=== PATIENT | male | born 1945 | race African-American/Black ===

== ENCOUNTER 2022-02-15 18:45 | Inpatient (IN) | payer MEDICARE, SELFPAY ==
[2022-02-15] MEDS: Prazosin HCL 1 MG CAPSULE 2 MG PO (21:11)
[2022-02-15] MEDS: modafiniL 100 MG TABLET 200 MG PO (21:12)
[2022-02-15] MEDS: Gabapentin 400 MG CAPSULE PO (21:13)
[2022-02-15] MEDS: QUEtiapine Fumarate 100 MG TABLET PO (21:13)
[2022-02-15] MEDS: Apixaban 5 MG TABLET PO (21:13)
[2022-02-15] MEDS: Atorvastatin Calcium 80 MG TABLET PO (21:13)
[2022-02-15] MEDS: Mirtazapine 15 MG TABLET PO (21:14)
[2022-02-15 21:41] LABS: Estimated Glomerular Filt Rate > 60
[2022-02-16 00:53] VITALS: BMI 25.4
--- NOTE | 2022-02-16 02:50 | PC.NURSE ---
Pt is a 76 yr old cisgender white male. Arrived to S1 at approximately 19:20 by stretcher via ambulance staff (EMT) from [place] ED. Admitted to S1 due to Suicidal attempt by MEENU Melo). Legal Status is CV. A&Ox 4, able to verbalize needs. NKA. Pt has a history of HTN, Pacemaker, Chronic Back Pain. Pt is covid negative. Toxicology Screen shows negative results. Pt reports that he recently used crystal meth and self reported using cocaine recently. States that he has used alcohol and is a former smoker. States that I'm really tired tonight, I just want to eat and sleep tonight and I will answer more questions tomorrow. Thank you for everything. Meds ordered and reviewed with Grace Rosenbaum NP. Pt human rights packet signed and given to patient. Breakfast Menu food options given and selected by patient. Pt compliant with HS scheduled meds. Pleasant and cooperative with care. Pt oriented to room, bathroom, milleu, and staff. Pt reports feeling safe on unit. Will continue to monitor.
[2022-02-16 06:00] VITALS: BP 145/76; PULSE 78; RESP 19; TEMP 36.6; O2SAT 96
[2022-02-16 08:16] LABS: Estimated Average Glucose 105 mg/dL; Hemoglobin A1c % 5.3 %
[2022-02-16 08:18] LABS: Alanine Aminotransferase 16 U/L (0-40); Albumin Level 3.4 g/dL (3.5-5.0); Alkaline Phosphatase 103 U/L (39-117); Anion Gap 14 (12-20); Aspartate Amino Transferase 18 U/L (5-37); Bilirubin Total 0.5 mg/dL (0.0-1.0); Blood Urea Nitrogen 16 mg/dL (9-16); Calcium 8.5 mg/dL (8.4-10.2); Carbon Dioxide 25 mmol/L (22-29); Chloride 108 mmol/L (96-108); Cholesterol 145 mg/dL; Creatinine Clr Calc Pharmacy 68.6; Estimated Glomerular Filt Rate > 60; Glucose Fasting 93 mg/dL (60-99); HDL Cholesterol 49 mg/dL; LDL Cholesterol Calculated 75 mg/dl; Magnesium 1.9 mg/dL (1.6-2.6); Potassium 4.2 mmol/L (3.3-5.1); Sodium 143 mmol/L (135-145); Total Protein 5.9 g/dL (6.5-8.0); Triglycerides 106 mg/dL
[2022-02-16] MEDS: amLODIPine Besylate 10 MG TABLET PO (08:19)
[2022-02-16] MEDS: Metoprolol Succinate ER 25 MG TAB.ER.24H PO (08:19)
[2022-02-16] MEDS: modafiniL 100 MG TABLET 200 MG PO ×2 (08:19→21:01)
[2022-02-16] MEDS: QUEtiapine Fumarate 25 MG TABLET PO (08:19)
[2022-02-16] MEDS: Naltrexone HCl 50 MG TABLET PO (08:19)
[2022-02-16] MEDS: Gabapentin 400 MG CAPSULE PO ×4 (08:19→21:03)
[2022-02-16] MEDS: Multivitamin TABLET 1 TAB PO (08:19)
[2022-02-16] MEDS: Sertraline HCL 100 MG TABLET PO (08:19)
[2022-02-16] MEDS: Thiamine HCL 100 MG TABLET PO (08:19)
[2022-02-16] MEDS: Apixaban 5 MG TABLET PO ×2 (08:20→21:02)
[2022-02-16] MEDS: Furosemide 40 MG TABLET PO (08:20)
[2022-02-16] MEDS: Folic Acid 1 MG TABLET PO (08:20)
[2022-02-16] MEDS: Lidocaine 4 % Patch ADH..PATCH 1 PATCH TRANSDERMA (08:20)
[2022-02-16 08:42] LABS: Thyroid Stimulating Hormone 0.92 uIU/mL (0.32-4.0)
[2022-02-16 09:04] LABS: Folate > 20.0 ng/mL (> or = 4.0); Vitamin B12 223 pg/mL (200-900)
--- NOTE | 2022-02-16 14:04 | HO.PM.IMCN ---
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 He was monitored in ED at [facility] prior to transfer to [facility]. EKG showed paced atrial fibrillation with new q waves. QTc normal. Utox at that time was negative. Pt reports hx crystal meth use, last use one month ago but denies any other drug use. States he is not supposed to be taking naltrexone. He also states that he had an acute episode of heart failure and was treated with furosemide but had a serious adverse reaction to the medication and was hospitalized for this at [facility]. Denies any chronic congestive heart failure. Review of Systems Review of Systems: General: No fevers, malaise, unintentional weight loss HEENT: No blurred vision, diplopia Cardiovascular: No chest pain, palpitations, or leg edema Respiratory: No shortness of breath, wheezing, cough GI: No abdominal pain, nausea, vomiting, diarrhea, constipation, melena, hematochezia : No dysuira,hematuria, increased urinary frequency Neuro: No headaches, weakness, paresthesias Skin: No rashes or lesions [facility] Medical History (Updated 02/16/22 @ 14:20 by CRISSY Bryant) Atrial fibrillation Cigarette smoker Congestive heart failure Hyperlipidemia Hypertension Intentional overdose Pacemaker Polysubstance abuse Post-COVID chronic dyspnea Family History (Updated 02/16/22 @ 14:20 by CRISSY Bryant) Other No pertinent family history Surgical History (Updated 02/16/22 @ 14:20 by CRISSY Bryant) S/P cardiac pacemaker procedure Social History Household Members: Family Household Members Other:: Twin brother, daughter Housing: Unknown / Unable to assess Do you presently have visiting nurse or other home services: No Unable to assess alcohol history related to: Refusing to respond Patient Tobacco Use Status: Former Tobacco user Tobacco use type: Cigarette Smoked in Last 30 Days: Yes e-Cigarette/Vaping Use: Never Used Frequency of e-Cigarette/Vaping Use: Pt refused to answer at this time, Im sorry I am tired and need rest Patient Interested in Nicotine Replacement: No Patient Given Instructions on How to Stop Smoking: No Second Hand Smoke Exposure: No Use of substances other than those prescribed or required for medical reasons: Yes Substance Use Type: Crack/Cocaine, Methamphetamine and Unknown Substance Use Frequency: Recent Binge Last Used Substance: Unknown Currently Displaying Signs/Symptoms of Drug Intoxication Withdrawal: No Advance Directives: No Advance Directives Information Provided: No Advance Directives on File: No Do you have thoughts of harming others: None Do you have a plan to hurt others: No Plan Recently lost weight without trying: Unsure How much weight loss: Unsure Meds Allergies Allergy/AdvReac Type Severity Reaction Status Date / Time No Known Allergies Allergy Verified 02/15/22 19:13 Active Medications: Current Medications Acetaminophen (Acetaminophen 325 Mg Tablet) 650 mg PO Q6H PRN PRN Reason: Headache/Pain Mild Scale (1-3) Al Hydroxide/Mg Hydroxide (Magnesium Hydrox/Alum Hydrox 30 Ml Oral.Susp) 30 ml PO Q6H PRN PRN Reason: Heartburn/Nausea Albuterol Sulfate (Albuterol Sulfate 90 Mcg 8 Gm Inhaler) 2 puff INHALE Q4H PRN PRN Reason: wheezing Amlodipine Besylate (Amlodipine Besylate 10 Mg Tablet) 10 mg PO DAILY [facility]; Protocol Last Admin: 02/16/22 08:19 Dose: 10 mg Apixaban (Apixaban 5 Mg Tablet) 5 mg PO BID [facility] Last Admin: 02/16/22 08:20 Dose: 5 mg Atorvastatin Calcium (Atorvastatin Calcium 80 Mg Tablet) 80 mg PO BEDTIME [facility] Last Admin: 02/15/22 21:13 Dose: 80 mg Carbamide Peroxide (Carbamide Peroxide 6.5% Otic 15 Ml Drpbtl) 5 drop EAR-BOTH DAILY [facility] Stop: 02/19/22 20:13 Last Admin: 02/16/22 11:49 Dose: Not Given Fluticasone Propionate (Fluticasone Propionate Nasal 16 Gm [place]) 2 spray NOSTRIL-B DAILY [facility] Last Admin: 02/16/22 11:48 Dose: Not Given Folic Acid (Folic Acid 1 Mg Tablet) 1 mg PO DAILY [facility] Last Admin: 02/16/22 08:20 Dose: 1 mg Furosemide (Furosemide 40 Mg Tablet) 40 mg PO DAILY [facility]; Protocol Last Admin: 02/16/22 08:20 Dose: 40 mg Gabapentin (Gabapentin 400 Mg Capsule) 400 mg PO QID [facility] Last Admin: 02/16/22 08:19 Dose: 400 mg Hydroxyzine HCl (Hydroxyzine Hcl 25 Mg Tablet) 25 mg PO Q6H PRN PRN Reason: Anxiety Influenza Virus Vaccine (Flu Vacc [id number](6mos Up)/Pf 0.5 Ml Syringe) 0.5 ml IM .ONCE ONE Stop: 02/16/22 14:03 Lidocaine (Lidocaine 4 % Patch Adh..Patch) 1 patch TRANSDERMA DAILY [facility] Last Admin: 02/16/22 08:20 Dose: 1 patch Magnesium Hydroxide (Milk Of Magnesia 30 Ml Oral.Susp) 30 ml PO DAILY PRN PRN Reason: Constipation Metoprolol Succinate (Metoprolol Succinate Er 25 Mg Tab.Er.24h) 25 mg PO DAILY [facility]; Protocol Last Admin: 02/16/22 08:19 Dose: 25 mg Mirtazapine (Mirtazapine 15 Mg Tablet) 15 mg PO BEDTIME [facility] Last Admin: 02/15/22 21:14 Dose: 15 mg Modafinil (Modafinil 100 Mg Tablet) 200 mg PO BID [facility] Last Admin: 02/16/22 08:19 Dose: 200 mg Multivitamins/Vitamin C (Multivitamin Tablet) 1 tab PO DAILY [facility] Last Admin: 02/16/22 08:19 Dose: 1 tab Naltrexone HCl (Naltrexone Hcl 50 Mg Tablet) 50 mg PO DAILY [facility] Last Admin: 02/16/22 08:19 Dose: 50 mg Nicotine Polacrilex (Nicotine Polacrilex 2 Mg Gum) 2 mg BUCCAL Q1H PRN PRN Reason: smoking cessation Prazosin HCl (Prazosin Hcl 1 Mg Capsule) 2 mg PO BEDTIME [facility]; Protocol Last Admin: 02/15/22 21:11 Dose: 2 mg Quetiapine Fumarate (Quetiapine Fumarate 100 Mg Tablet) 100 mg PO BEDTIME [facility] Last Admin: 02/15/22 21:13 Dose: 100 mg Quetiapine Fumarate (Quetiapine Fumarate 25 Mg Tablet) 25 mg PO DAILY [facility] Last Admin: 02/16/22 08:19 Dose: 25 mg Sertraline HCl (Sertraline Hcl 100 Mg Tablet) 100 mg PO DAILY [facility] Last Admin: 02/16/22 08:19 Dose: 100 mg Thiamine HCl (Thiamine Hcl 100 Mg Tablet) 100 mg PO DAILY [facility] Last Admin: 02/16/22 08:19 Dose: 100 mg Trazodone HCl (Trazodone Hcl 50 Mg Tablet) 50 mg PO BEDTIME PRN PRN Reason: Insomnia Physical Exam Vital Signs and Narrative: Vital Signs: Last Vital Signs Temp 98 F 02/16/22 06:00 Pulse 78 02/16/22 06:00 Resp 19 02/16/22 06:00 BP 145/76 H 02/16/22 06:00 Pulse Ox 96 02/16/22 06:00 O2 Del Method 02/16/22 06:00 BMI result Body Mass Index 25.4 Constitutional - Awake and Alert, No apparent distress Eyes - PERRLA, EOMI Cardiovascular - S1S2, RRR, No edema Respiratory - Normal lung expansion, Normal respiratory effort, No respiratory distress, CTA bilaterally Gastrointestinal - NT / ND; +BS; No rebound or guarding Extremities - no calf tenderness bilaterally, no swelling Musculoskeletal - Normal inspection, normal ROM Skin - Warm/Dry Neurological - Alert & oriented x3, CN II-XII in tact, 5/5 strength BUE and BLE Psychological - Appropriate affect Results Labs CBC and Chem 7: 02/16/22 07:54 Labs: Laboratory Results - last 24 hr 02/15/22 02/16/22 02/16/22 21:07 07:54 07:54 Anion Gap 14 Estim Creat Clear Calc TNP 68.6 Estimated GFR > 60 > 60 Fasting Glucose 93 Estimat Average Glucose 105 Hemoglobin A1c % 5.3 Calcium 8.5 Magnesium 1.9 Total Bilirubin 0.5 AST 18 ALT 16 Alkaline Phosphatase 103 Total Protein 5.9 L Albumin 3.4 L Triglycerides 106 Cholesterol 145 LDL Cholesterol, Calc 75 HDL Cholesterol 49 Vitamin B12 Folate TSH 0.92 Free T4 1.10 02/16/22 07:54 Anion Gap Estim Creat Clear Calc Estimated GFR Fasting Glucose Estimat Average Glucose Hemoglobin A1c % Calcium Magnesium Total Bilirubin AST ALT Alkaline Phosphatase Total Protein Albumin Triglycerides Cholesterol LDL Cholesterol, Calc HDL Cholesterol Vitamin B12 223 Folate > 20.0 TSH Free T4 Assessment and Plan (1) Intentional overdose: Status: Acute Plan 76 year old male with history of hypertension, hyperlipidemia, polysubstance abuse, 2 cigarette per day smoker, atrial fibrillation anticoagulated with eliquis, and 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 #intentional overdose -pt took OD of gabapentin and seroquel on 02/13. EKG showed paced atrial fibrillation with new q waves from LVH but normal QTc -Hem and chemistries normal -Per ED notes patient took 100 seroquel. He is hemodynamically stable at this time. Would repeat EKG -Plan per psychiatry #Atrial fibrillation- rate controlled -Continue eliquis for anticoagulation -Continue metoprolol for rate #History of CHF -unclear etiology and chronicity -He is euvolemic and asymtpomatic at this time -Pt states had adverse rxn to furosemide and was hospitalized at [facility] and med was dc[facility] -Follow up outpt with pcp #Polysubstance abuse -Pt endorses last crystal meth use was one month ago. Denies other narcotic use but ED notes report hx cocaine use. -Utox screen in ED negative -Plan per psychiatry #History alcohol abuse -Appears [facility]. DC naltrexone -Continue folic acid and thiamine -Denies recent use. #Post-covid dyspnea -Albuterol prn #HTN- bp somewhat soft -Continue metoprolol -No longer taking [facility]. Discontinued. If hypertensive, resume at 5mg #Nicotine depedence -Smoke 2 cigs daily -Nicorette gum ordered for NRT Pt states multiple times that he does not have to take medications if he does not feel they should have been ordered. Discussed with the patient that yes, he does have the right to refuse medications but reminded the patient that the medications are ordered for a purpose and he is encouraged tohave a discussion with his providers if he has concerns about specific medications before outrightly refusing.
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
[2022-02-16 18:00] VITALS: BP 158/85; PULSE 60; RESP 18; TEMP 37.1; O2SAT 97
[2022-02-16] MEDS: QUEtiapine Fumarate 100 MG TABLET PO (21:00)
[2022-02-16] MEDS: Mirtazapine 15 MG TABLET PO (21:01)
[2022-02-16] MEDS: Prazosin HCL 1 MG CAPSULE 2 MG PO (21:02)
[2022-02-16] MEDS: Atorvastatin Calcium 80 MG TABLET PO (21:02)
[2022-02-17] MEDS: Acetaminophen 325 MG TABLET 650 MG PO (00:21)
[2022-02-17] MEDS: hydrOXYzine HCL 25 MG TABLET PO (00:22)
[2022-02-17 06:00] VITALS: BP 174/88; PULSE 71; RESP 20; TEMP 36.6; O2SAT 96
[2022-02-17 07:00] VITALS: BMI 25.4
[2022-02-17] MEDS: Multivitamin TABLET 1 TAB PO (09:59)
[2022-02-17] MEDS: QUEtiapine Fumarate 25 MG TABLET PO (09:59)
[2022-02-17] MEDS: Folic Acid 1 MG TABLET PO (10:00)
[2022-02-17] MEDS: Sertraline HCL 100 MG TABLET PO (10:00)
[2022-02-17] MEDS: Thiamine HCL 100 MG TABLET PO (10:00)
[2022-02-17] MEDS: Apixaban 5 MG TABLET PO ×2 (10:00→21:37)
[2022-02-17] MEDS: Metoprolol Succinate ER 25 MG TAB.ER.24H PO (10:00)
[2022-02-17] MEDS: Gabapentin 400 MG CAPSULE PO ×4 (10:00→21:37)
[2022-02-17] MEDS: modafiniL 100 MG TABLET 200 MG PO ×2 (10:00→16:39)
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
[2022-02-17 20:00] VITALS: BP 175/87; PULSE 60; RESP 18; TEMP 37; O2SAT 96
[2022-02-17] MEDS: Mirtazapine 15 MG TABLET PO (21:37)
[2022-02-17] MEDS: Atorvastatin Calcium 80 MG TABLET PO (21:37)
[2022-02-17] MEDS: Prazosin HCL 1 MG CAPSULE 2 MG PO (21:37)
[2022-02-17] MEDS: QUEtiapine Fumarate 100 MG TABLET PO (21:37)
[2022-02-18 08:00] VITALS: BP 169/87; PULSE 60; RESP 16; TEMP 36.5; O2SAT 97
[2022-02-18] MEDS: Sertraline HCL 100 MG TABLET PO (08:23)
[2022-02-18] MEDS: Metoprolol Succinate ER 25 MG TAB.ER.24H PO (08:24)
[2022-02-18] MEDS: modafiniL 100 MG TABLET 200 MG PO ×2 (08:24→14:06)
[2022-02-18] MEDS: Thiamine HCL 100 MG TABLET PO (08:25)
[2022-02-18] MEDS: Multivitamin TABLET 1 TAB PO (08:25)
[2022-02-18] MEDS: Folic Acid 1 MG TABLET PO (08:25)
[2022-02-18] MEDS: Gabapentin 400 MG CAPSULE PO ×4 (08:26→23:24)
[2022-02-18] MEDS: Apixaban 5 MG TABLET PO ×2 (08:26→23:23)
[2022-02-18] MEDS: Acetaminophen 325 MG TABLET 650 MG PO (10:10)
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
[2022-02-18 18:00] VITALS: BP 151/72; PULSE 59; RESP 18; TEMP 36.7; O2SAT 96
[2022-02-18] MEDS: Prazosin HCL 1 MG CAPSULE 2 MG PO (23:24)
[2022-02-18] MEDS: Atorvastatin Calcium 80 MG TABLET PO (23:24)
[2022-02-18] MEDS: Mirtazapine 15 MG TABLET PO (23:24)
[2022-02-18] MEDS: QUEtiapine Fumarate 100 MG TABLET PO (23:25)
[2022-02-19 08:10] VITALS: BP 144/68; PULSE 60; RESP 18; TEMP 36.2; O2SAT 97
[2022-02-19] MEDS: Gabapentin 400 MG CAPSULE PO ×3 (08:35→21:01)
[2022-02-19] MEDS: Sertraline HCL 100 MG TABLET PO (08:35)
[2022-02-19] MEDS: Metoprolol Succinate ER 25 MG TAB.ER.24H PO (08:35)
[2022-02-19] MEDS: Thiamine HCL 100 MG TABLET PO (08:35)
[2022-02-19] MEDS: Folic Acid 1 MG TABLET PO (08:35)
[2022-02-19] MEDS: Multivitamin TABLET 1 TAB PO (08:35)
[2022-02-19] MEDS: modafiniL 100 MG TABLET 200 MG PO ×2 (08:35→14:56)
[2022-02-19] MEDS: Apixaban 5 MG TABLET PO ×2 (08:35→21:01)
[2022-02-19] MEDS: Acetaminophen 325 MG TABLET 650 MG PO ×2 (08:41→21:01)
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
[2022-02-19 18:00] VITALS: BP 133/63; PULSE 60; RESP 16; TEMP 37.4; O2SAT 96
[2022-02-19] MEDS: QUEtiapine Fumarate 100 MG TABLET PO (21:01)
[2022-02-19] MEDS: Atorvastatin Calcium 80 MG TABLET PO (21:01)
[2022-02-19] MEDS: Prazosin HCL 1 MG CAPSULE 2 MG PO (21:01)
[2022-02-19] MEDS: Mirtazapine 15 MG TABLET PO (21:01)
[2022-02-19] MEDS: LORazepam 0.5 MG TABLET PO (21:02)
[2022-02-20 06:00] VITALS: BP 141/73; PULSE 60; RESP 18; TEMP 36.1; O2SAT 98
[2022-02-20] MEDS: Thiamine HCL 100 MG TABLET PO (09:30)
[2022-02-20] MEDS: Gabapentin 400 MG CAPSULE PO ×4 (09:30→20:58)
[2022-02-20] MEDS: Multivitamin TABLET 1 TAB PO (09:30)
[2022-02-20] MEDS: Folic Acid 1 MG TABLET PO (09:30)
[2022-02-20] MEDS: Apixaban 5 MG TABLET PO ×2 (09:30→20:57)
[2022-02-20] MEDS: Sertraline HCL 100 MG TABLET PO (09:31)
[2022-02-20] MEDS: modafiniL 100 MG TABLET 200 MG PO ×2 (09:31→14:58)
[2022-02-20] MEDS: Metoprolol Succinate ER 25 MG TAB.ER.24H PO (09:31)
[2022-02-20] MEDS: Lidocaine 4 % Patch ADH..PATCH 1 PATCH TRANSDERMA (09:34)
[2022-02-20] MEDS: Acetaminophen 325 MG TABLET 650 MG PO ×2 (10:10→15:29)
[2022-02-20] MEDS: LORazepam 0.5 MG TABLET PO ×2 (10:14→20:57)
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
[2022-02-20 18:00] VITALS: BP 161/79; PULSE 60; RESP 16; TEMP 36.7; O2SAT 97
[2022-02-20] MEDS: Mirtazapine 15 MG TABLET PO (20:56)
[2022-02-20] MEDS: Atorvastatin Calcium 80 MG TABLET PO (20:57)
[2022-02-20] MEDS: QUEtiapine Fumarate 100 MG TABLET PO (20:57)
[2022-02-20] MEDS: Prazosin HCL 1 MG CAPSULE 2 MG PO (20:58)
[2022-02-21 07:30] VITALS: BP 161/80; PULSE 62; RESP 14; TEMP 36.2; O2SAT 93
[2022-02-21] MEDS: Thiamine HCL 100 MG TABLET PO (08:42)
[2022-02-21] MEDS: Folic Acid 1 MG TABLET PO (08:42)
[2022-02-21] MEDS: Gabapentin 400 MG CAPSULE PO ×4 (08:42→20:27)
[2022-02-21] MEDS: modafiniL 100 MG TABLET 200 MG PO ×2 (08:42→13:18)
[2022-02-21] MEDS: Multivitamin TABLET 1 TAB PO (08:42)
[2022-02-21] MEDS: Metoprolol Succinate ER 25 MG TAB.ER.24H PO (08:43)
[2022-02-21] MEDS: Sertraline HCL 100 MG TABLET PO (08:43)
[2022-02-21] MEDS: Apixaban 5 MG TABLET PO ×2 (08:43→20:28)
[2022-02-21] MEDS: Acetaminophen 325 MG TABLET 650 MG PO ×2 (10:40→20:27)
[2022-02-21] MEDS: LORazepam 0.5 MG TABLET PO ×2 (10:43→20:27)
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
[2022-02-21 18:00] VITALS: BP 131/64; PULSE 62; RESP 18; TEMP 36.7; O2SAT 95
[2022-02-21] MEDS: QUEtiapine Fumarate 100 MG TABLET PO (20:27)
[2022-02-21] MEDS: Prazosin HCL 1 MG CAPSULE 2 MG PO (20:27)
[2022-02-21] MEDS: Mirtazapine 15 MG TABLET PO (20:28)
[2022-02-21] MEDS: Atorvastatin Calcium 80 MG TABLET PO (21:25)
--- NOTE | 2022-02-22 08:23 | P.DS_ITS ---
DS: Providers Provider Date of Service: 02/22/22 Date of admission: 02/15/22 18:45 Date of discharge: 02/22/22 Primary care physician: Unknown Physician Consults: 02/15/22 19:13 Consult to Hospitalist Routine Consulting Provider: Hospitalist Reason For Exam: New admit from [place] DS: Diagnosis Discharge Diagnosis (1) Mood disorder: Status: Acute (2) Amphetamine addiction: Status: Acute DS: Medications Discharge Medications Home Medications: Home Medications Medication Instructions Recorded Confirmed Diclo Gel See Rx Instructions .Route .COMPLEX 02/16/22 02/16/22 Nicorette 2 mg buccal NEEDED PRN Nicotine 02/16/22 02/16/22 Cravings Seroquel 50 mg PO DAILY ANXIETY 02/16/22 02/16/22 Seroquel 200 mg PO BEDTIME MOOD DISORDER 02/16/22 02/16/22 atorvastatin 80 mg PO BEDTIME Hyperlipidemia 02/16/22 02/16/22 folic acid 1 mg PO DAILY 02/16/22 02/16/22 gabapentin 400 mg PO QID 02/16/22 02/16/22 modafinil 200 mg PO BID 02/16/22 02/16/22 multivitamin 1 tab PO DAILY 02/16/22 02/16/22 naloxone 4 mg NOSTRIL-R NEEDED PRN 02/16/22 02/16/22 Opiate Reversal prazosin 2 mg PO BEDTIME ptsd 02/16/22 02/16/22 thiamine HCl (vitamin B1) 100 mg PO DAILY 02/16/22 02/16/22 Mental Status Exam Mental Status Exam Patient Appearance: Well Grooomed Patient Orientation: Person, Place, Time and Situation Level of Consciousness: Awake Patient Behavior: Cooperative Mood Description: Constricted Affect Description: Calm Patient Cognition Impaired: No Ability to Follow Directions: Good Speech Pattern: Clear Hallucinations: None Delusions: Not Present Thought Process: Linear Thought Content: positive for Nada and positive for Circumstantial Judgement: Fair Data Data Completed and Pending Completed studies during hospitalization [Text1]: 02/15/22 02/16/22 02/16/22 21:07 07:54 07:54 Sodium 143 Potassium 4.2 Chloride 108 Carbon Dioxide 25 Anion Gap 14 BUN 16 Creatinine 1.03 0.93 Estim Creat Clear Calc TNP 68.6 Estimated GFR > 60 > 60 Fasting Glucose 93 Estimat Average Glucose 105 Hemoglobin A1c % 5.3 Calcium 8.5 Magnesium 1.9 Total Bilirubin 0.5 AST 18 ALT 16 Alkaline Phosphatase 103 Total Protein 5.9 L Albumin 3.4 L Triglycerides 106 Cholesterol 145 LDL Cholesterol, Calc 75 HDL Cholesterol 49 Vitamin B12 Folate TSH 0.92 Free T4 1.10 02/16/22 07:54 Sodium Potassium Chloride Carbon Dioxide Anion Gap BUN Creatinine Estim Creat Clear Calc Estimated GFR Fasting Glucose Estimat Average Glucose Hemoglobin A1c % Calcium Magnesium Total Bilirubin AST ALT Alkaline Phosphatase Total Protein Albumin Triglycerides Cholesterol LDL Cholesterol, Calc HDL Cholesterol Vitamin B12 223 Folate > 20.0 TSH Free T4 DS: Summary Hospital Course Hospital Course: The patient was admitted after suicidal attempt with an overdose of Seroquel from a different facility. The patient carries the diagnosis of polysubstance dependence, PTSD and mood disorder. Please see the [facility] admission note for further details. On admission, we review his list of medications and he stated that he has been receiving [facility] since [facility] is a [facility]. He stated that he has PTSD and he has a remote history of cocaine use disorder and other stimulants. He stated that he recently relapsed on crystal methamphetami ne for the last year after her daughter introduce him to this trauma. . We observed his vital signs and there were no evidence of withdrawal symptoms to even though he was placed on CIWA. We continue with his regular medications, the patient was seen in the facility future oriented and participated in all the therapeutic activities. He was able to participate on groups and he was socializing with peers in an assertive way. The certified social workers in health care coordinated his care with his outpatient providers. The patient adamantly denied suicidal ideation, he was future oriented and since there were no safety concerns discharge planning was started. Time spent discussing smoking cessation with patient: 3 to 10 minutes Status at Discharge Cognitive/behavioral status at discharge: At baseline Functional status at discharge: independent ambulation Overall status at discharge: patient is back to baseline Time Spent with Patient Time attestation: Total time spent providing and/or coordinating discharge services: Time spent: Less than 30 minutes Discharge Plan Discharge Anticipated Discharge Date/Time: 02/22/22 08:26 Patient Disposition: Home, Self-Care Discharge Diagnosis: amphetamine use disorder PTSD Mood disorder Referrals: [place] [Other] - 02/22/22 3:00 pm (Your next appointment with your psychiatrist at the [facility] is for 02/22/22 at 3PM. ) [facility] P[facility] [Other] - 1 Week (Please contact your PCP's office to schedule appointment. PCP's office stated that your would have to contact them directly for appointment. ) Sahil Haddad certified social workers in health care [facility] [Other] - 02/23/22 (Your case manager specialist Sahil will be out from 02/23-03/07 and back 03/08. In his absence, Martin Katz certified social workers in health care [facility] will be contacting you. His phone number is [phone]. ) Discharge Medications: New multivitamin [Daily-[place]alis] Tablet 1 tab PO DAILY 30 Days Qty: 30 0RF quetiapine 25 mg Tablet 25 mg PO DAILY 30 Days Qty: 30 0RF atorvastatin 80 mg Tablet 80 mg PO BEDTIME 30 Days Qty: 30 0RF acetaminophen 325 mg Tablet 650 mg PO Q6H PRN (Reason: Headache/Pain Mild Scale (1-3)) 30 Days Qty: 60 0RF lidocaine [Lidocaine Pain Relief] 4 % Adhesive Patch,Medicated 1 patch transdermal DAILY 30 Days Qty: 30 0RF Protocol: Apply to: Apply to: back trazodone 50 mg Tablet 50 mg PO BEDTIME PRN (Reason: Insomnia) 30 Days Qty: 30 0RF prazosin 1 mg Capsule 2 mg PO BEDTIME 30 Days Qty: 60 0RF Protocol: Hold for SBP< HOLD for SBP < : 90 gabapentin 400 mg Capsule 400 mg PO QID 30 Days Qty: 120 0RF sertraline 100 mg Tablet 100 mg PO DAILY 30 Days Qty: 30 0RF quetiapine 100 mg Tablet 100 mg PO BEDTIME 30 Days Qty: 30 0RF folic acid 1 mg Tablet 1 mg PO DAILY 30 Days Qty: 30 0RF hydroxyzine HCl 25 mg Tablet 25 mg PO Q6H PRN (Reason: Anxiety) 30 Days Qty: 60 0RF mirtazapine 15 mg Tablet 15 mg PO BEDTIME 30 Days Qty: 30 0RF metoprolol succinate 25 mg Tablet Extended Release 24 Hr 25 mg PO DAILY 30 Days Qty: 30 0RF Protocol: Hold for SBP/HR < HOLD for SBP < : 90 HOLD for HR < : 60 albuterol sulfate [Ventolin HFA] 90 mcg/actuation Hfa Aerosol Inhaler 2 puff inhalation Q4H PRN (Reason: wheezing) Qty: 1 0RF fluticasone propionate 50 mcg/actuation [place],Suspension 2 spray intranasal DAILY 30 Days Qty: 1 0RF modafinil [Provigil] 100 mg Tablet 200 mg PO BID@0900,1300 30 Days Qty: 120 0RF Eliquis 5 mg Tablet 5 mg PO BID 30 Days Qty: 60 0RF thiamine mononitrate (vit B1) 100 mg Tablet 100 mg PO DAILY 30 Days Qty: 30 0RF Continued naloxone 4 MG nasal spray syringe 4 mg NOSTRIL-R NEEDED PRN (Reason: Opiate Reversal) Qty: 2 0RF Discontinued Diclo Gel 1 % gel See Rx Instructions .ROUTE .COMPLEX Rx Instructions: apply small amount to skin every day for pain atorvastatin 80 mg tablet 80 mg PO BEDTIME folic acid 1 mg tablet 1 mg PO DAILY Nicorette 2 MG gum 2 mg buccal NEEDED PRN (Reason: Nicotine Cravings) Seroquel 200 MG tablet 200 mg PO BEDTIME gabapentin 400 mg capsule 400 mg PO QID multivitamin 1 TAB tablet 1 tab PO DAILY prazosin 2 MG capsule 2 mg PO BEDTIME Seroquel 50 MG tablet 50 mg PO DAILY Rx Instructions: take one-half tablet by mouth every day. may take an additional half tab (25 mg ) if needed. modafinil 200 mg tablet 200 mg PO BID Rx Instructions: take one tablet by mouth twice daily to prevent falling asleep thiamine HCl (vitamin B1) 100 mg tablet 100 mg PO DAILY Discharge Orders: Discharge Order (Routine); Ordered 02/22/22 Ordered By: Henri Burris Diet: Advance to usual diet Activity on Discharge: As tolerated Stand Alone Forms: Patient Portal Discharge page Care Plan Goals: care plan goals achieved in this admission Health Concerns: continue treatment by outpatient providers at the [facility] Plan of Treatment: continue outpatient psychiatric treatment at the [facility] Assessment: elderly male with a history of polysubstance dependence and PTSD who relapse on amphetamines recently in the context of several psychosocial stressors, he was brought into this facility due to an intentional overdose. At this moment he is future oriented, pleasant cooperative and willing to continue treatment as an outpatient. No safety concerns at this moment.
[2022-02-22] MEDS: Lidocaine 4 % Patch ADH..PATCH 1 PATCH TRANSDERMA (08:26)
[2022-02-22] MEDS: Lidocaine 5 % Ointment 35 GM 1 APPL TOPICAL (08:27)
[2022-02-22] MEDS: modafiniL 100 MG TABLET 200 MG PO (08:27)
[2022-02-22] MEDS: Metoprolol Succinate ER 25 MG TAB.ER.24H PO (08:27)
[2022-02-22] MEDS: Apixaban 5 MG TABLET PO (08:27)
[2022-02-22] MEDS: Folic Acid 1 MG TABLET PO (08:27)
[2022-02-22] MEDS: Gabapentin 400 MG CAPSULE PO (08:28)
[2022-02-22] MEDS: Thiamine HCL 100 MG TABLET PO (08:28)
[2022-02-22] MEDS: Sertraline HCL 100 MG TABLET PO (08:28)
[2022-02-22] MEDS: Multivitamin TABLET 1 TAB PO (08:28)
[2022-02-22] MEDS: Acetaminophen 325 MG TABLET 650 MG PO (09:14)
== END 2022-02-22 10:42 | disposition home or self-care (01) | DRG 885 ==
PROVIDERS: Registered Nurse; Admitting Provider Psychiatry & Neurology Psychiatry; Visit Provider Psychiatry & Neurology Psychiatry
DX: F39 Unspecified mood [affective] disorder (principal); F15.20 Other stimulant dependence, uncomplicated; F17.210 Nicotine dependence, cigarettes, uncomplicated; F19.10 Other psychoactive substance abuse, uncomplicated; Z71.6 Tobacco abuse counseling; E78.5 Hyperlipidemia, unspecified; F43.10 Post-traumatic stress disorder, unspecified; I48.91 Unspecified atrial fibrillation; R06.00 Dyspnea, unspecified; U09.9 Post COVID-19 condition, unspecified; Z95.0 Presence of cardiac pacemaker; Z88.8 Allergy status to other drugs, medicaments and biological substances; Z91.51 Personal history of suicidal behavior; Z79.01 Long term (current) use of anticoagulants; Z79.51 Long term (current) use of inhaled steroids; Z79.899 Other long term (current) drug therapy
CPT/HCPCS: 36415; 80053; 80061; 82565; 82607; 82746; 83036; 83735; 84439; 84443